=== PATIENT | male | born 1955 | race Caucasian/White ===

== ENCOUNTER 2018-01-18 14:34 | Emergency (ER) | payer OTHER ==
[~2018-01-18] VITALS: Ht 172.7 cm; Wt 73.3 kg
[~2018-01-18 14:34] MED LIST: DICL100T PO; HYDR1TAB14 PO; LORA0.5T PO
[2018-01-18 14:42] VITALS: BP 155/92
[2018-01-18] MEDS ORDERED: CLINDAMYCIN PMX 600MG/50ML 50 ML IV ONE (15:30)
[2018-01-18] MEDS ORDERED: CLINDAMYCIN PMX 600MG/50ML 50 ML ONE (15:47)
[2018-01-18 16:15] LABS: ALANINE AMINOTRANSFERASE 27 U/L (12-78); ALBUMIN 3.4 g/dL (3.4-5.0); ANION GAP 10 mmol/L (5-15); CALCIUM 8.8 mg/dL (8.5-10.1); CHLORIDE 104 mmol/L (98-107)
[2018-01-18 16:18] LABS: ALKALINE PHOSPHATASE 111 U/L (45-117); BILIRUBIN,TOTAL 0.6 mg/dL (0.2-1.0); CREATININE 0.77 mg/dL (0.7-1.3); TOTAL PROTEIN 6.7 g/dL (6.4-8.2)
[2018-01-18 16:53] LABS: BASOPHILS # (AUTO) 0.01 x10^3/uL (0-0.1); BASOPHILS % (AUTO) 0 % (0-1); EOSINOPHILS # (AUTO) 0.15 x10^3/uL (0-0.4); EOSINOPHILS % (AUTO) 1 % (1-7); LYMPHOCYTES # (AUTO) 1.11 x10^3/uL (1-3.4); LYMPHOCYTES % (AUTO) 9 % (22-44); MD NO; MEAN CORPUSCULAR HEMOGLOBIN 31.8 pg (27.5-34.5); MEAN CORPUSCULAR HGB CONC 33.5 g/dL (33.2-36.2); MEAN CORPUSCULAR VOLUME 94.9 fL (81-97); MEAN PLATELET VOLUME 7.3 fL (7.4-10.4); MONOCYTES # (AUTO) 0.98 x10^3/uL (0.2-0.8); MONOCYTES % (AUTO) 8 % (2-9); NEUTROPHILS # (AUTO) 10.58 x10^3/uL (1.8-6.8); NEUTROPHILS % (AUTO) 83 % (42-75); PLATELET COUNT 276 x10^3/uL (130-400); RED BLOOD COUNT 4.78 x10^6/uL (4.38-5.82); RED CELL DISTRIBUTION WIDTH 14.5 % (9.4-14.8)
== END 2018-01-18 17:03 | disposition home or self-care (01) ==
LOC: ED 16:24
DX: L03.114 Cellulitis of left upper limb (principal)
CPT/HCPCS: 36415; 80053; 84550; 85025; 96365; 99285

== ENCOUNTER 2018-07-14 18:46 | Emergency (ER) | payer OTHER ==
[~2018-07-14] VITALS: Ht 172.7 cm; Wt 76.9 kg
[2018-07-14 18:54] VITALS: BP 153/91
[2018-07-14] MEDS ORDERED: OXYMETAZOLINE NASAL SPRAY 0.05%, 15ML NAS ONE (20:00)
[2018-07-14] MEDS ORDERED: OXYMETAZOLINE NASAL SPRAY 0.05%,30ML ONE (20:15)
--- NOTE | 2018-07-14 20:55 | NUR ---
PACKING IN RIGHT NARE WITH NO BLEEDING NOTED. PT GIVEN DISCHARGE INSTRUCTIONS WITH QUESTIONS ANSWERED ABOUT FOLLOWUP. AMBULATED TO DISCHARGE WINDOW, STEADY GAIT
== END 2018-07-14 20:58 | disposition home or self-care (01) ==
LOC: ED 20:57
DX: R04.0 Epistaxis (principal); F41.1 Generalized anxiety disorder; Z87.891 Personal history of nicotine dependence; N40.0 Benign prostatic hyperplasia without lower urinary tract symptoms
CPT/HCPCS: 99282

== ENCOUNTER 2018-07-16 20:02 | Emergency (ER) | payer OTHER ==
[~2018-07-16] VITALS: Ht 172.7 cm; Wt 76.8 kg
[2018-07-16 20:08] VITALS: BP 163/95
== END 2018-07-16 21:35 | disposition home or self-care (01) ==
LOC: ED 21:05
DX: Z48.00 Encounter for change or removal of nonsurgical wound dressing (principal); F41.1 Generalized anxiety disorder
CPT/HCPCS: 99281

== ENCOUNTER → 2019-12-22 | Outpatient (CLI) | payer MEDICARE ==
[~2019-12-22] MED LIST changes: +ALLO100T30 PO; +DICL75TA3 PO; +HYDR-3246 PO; -HYDR1TAB14 PO; +HYDR1TAB15 PO; +LORA-446 PO; +OMEP40CA42 PO; +TAMS-11 PO
== END | disposition home or self-care (01) ==
LOC: STAR 14:12
PROVIDERS: ATTEND Orthopaedic Surgery
DX: Z01.818 Encounter for other preprocedural examination (principal); M25.511 Pain in right shoulder; M19.011 Primary osteoarthritis, right shoulder
CPT/HCPCS: 87081; 93005

== ENCOUNTER → 2019-12-27 | Outpatient (CLI) | payer MEDICARE | END | disposition home or self-care (01) | LOC: STAR 15:35 | PROVIDERS: ATTEND Anesthesiology | DX: Z01.812 Encounter for preprocedural laboratory examination (principal); Z20.828 Contact with and (suspected) exposure to other viral communicable diseases | CPT/HCPCS: 36415; 87635 ==

== ENCOUNTER 2020-05-12 13:20 | Outpatient (CLI) | payer MEDICARE ==
[~2020-05-12] VITALS: Ht 172.7 cm; Wt 75.0 kg
[~2020-05-12 13:20] MED LIST changes: -FURO-93 PO; -HYDR-3246 PO; +HYDR-3248 PO
[2020-05-12] MEDS ORDERED: FURO-93 PO (13:51)
[2020-05-18] MEDS ORDERED: BUPIVACAINE/PF 0.5% ONE (05:59)
[2020-05-18] MEDS ORDERED: CLINDAMYCIN 150 MG/ML, 6ML ONE (05:59)
[2020-05-18] MEDS ORDERED: BUPIVACAINE LIPOSOME/PF 10ML INFIL ONE (06:39)
== END 2020-05-12 23:59 | disposition home or self-care (01) ==
LOC: OUT 13:20 → EDSTATUS 05-18 15:30
PROVIDERS: ATTEND Orthopaedic Surgery
DX: Z02.9 Encounter for administrative examinations, unspecified (principal)

== ENCOUNTER → 2020-05-12 | Outpatient (CLI) | payer MEDICARE ==
[~2020-05-12] MED LIST changes: +FURO-93 PO
[2020-05-12 15:09] LABS: ALANINE AMINOTRANSFERASE 18 U/L (12-78); ALBUMIN 3.3 g/dL (3.4-5.0); ANION GAP 5 mmol/L (5-15); CHLORIDE 108 mmol/L (98-107)
[2020-05-12 15:12] LABS: ALKALINE PHOSPHATASE 146 U/L (45-117); BILIRUBIN,TOTAL 0.3 mg/dL (0.2-1.0); CREATININE 0.74 mg/dL (0.7-1.3); TOTAL PROTEIN 6.9 g/dL (6.4-8.2)
== END | disposition home or self-care (01) ==
LOC: STAR 13:18
PROVIDERS: ATTEND Orthopaedic Surgery
DX: Z01.812 Encounter for preprocedural laboratory examination (principal); Z20.828 Contact with and (suspected) exposure to other viral communicable diseases; M25.511 Pain in right shoulder; Z96.611 Presence of right artificial shoulder joint
CPT/HCPCS: 80053; 87081; 87635; 93005

== ENCOUNTER → 2020-08-16 | Outpatient (CLI) | payer MEDICARE ==
[~2020-08-16] MED LIST changes: +CLOT15CR26 TP; +FURO-93 PO; +LUBI24CA7 PO; +SILD100T PO; +TADA20TA PO
[2020-08-16 16:18] LABS: ALANINE AMINOTRANSFERASE 20 U/L (12-78); ALBUMIN 3.7 g/dL (3.4-5.0); ANION GAP 4 mmol/L (5-15); CALCIUM 9.1 mg/dL (8.5-10.1); CHLORIDE 106 mmol/L (98-107); CREATININE 0.79 mg/dL (0.7-1.3)
[2020-08-16 16:20] LABS: ALKALINE PHOSPHATASE 118 U/L (45-117); BILIRUBIN,TOTAL 0.3 mg/dL (0.2-1.0); TOTAL PROTEIN 6.7 g/dL (6.4-8.2)
== END | disposition home or self-care (01) ==
LOC: STAR 14:42
PROVIDERS: ATTEND Orthopaedic Surgery
DX: Z01.812 Encounter for preprocedural laboratory examination (principal); Z20.822 Contact with and (suspected) exposure to COVID-19; M25.511 Pain in right shoulder; Z96.611 Presence of right artificial shoulder joint
CPT/HCPCS: 36415; 80053; 87081; 93005; U0003

== ENCOUNTER 2020-08-22 07:17 | Day surgery (SDC) | payer MEDICARE ==
[~2020-08-22] VITALS: Ht 172.7 cm; Wt 73.0 kg
[~2020-08-22 07:17] MED LIST changes: +BUPIVACAINE LIPOSOME/PF 10ML INFIL ONE
[2020-08-22] MEDS ORDERED: ONDANSETRON 2MG/ML, 2ML IVPush PRN (08:00)
[2020-08-22] MEDS ORDERED: KETOROLAC 30 MG/1 ML IVPush PRN ×2 (08:00→08:30)
[2020-08-22] MEDS ORDERED: CHLORHEXIDINE 15 ML UDC PO ONE (08:00)
[2020-08-22] MEDS ORDERED: MIDAZOLAM 1 MG/ML, 2ML ONE (08:00)
[2020-08-22] MEDS ORDERED: HYDROcodone/APAP 7.5-325MG/15ML UDC PO PRN (08:00)
[2020-08-22] MEDS ORDERED: OXYcodone 5 MG/5 ML ORAL.SOL UDC PO PRN (08:00)
[2020-08-22] MEDS ORDERED: HYDROmorphone 1 MG/ML, 1ML INJ IVPush PRN (08:00)
[2020-08-22] MEDS ORDERED: FENTANYL PF 100 MCG/2ML IV PRN (08:00)
[2020-08-22] MEDS ORDERED: VANCOMYCIN PER PHARMACY MC PRN (08:00)
[2020-08-22] MEDS ORDERED: PROMETHAZINE 25 MG/ML, 1ML IVPush PRN (08:00)
[2020-08-22] MEDS ORDERED: ONDANSETRON 2MG/ML, 2ML ONE (08:01)
[2020-08-22] MEDS ORDERED: NEOSTIGMINE 1 MG/ML, 10ML ONE (08:01)
[2020-08-22] MEDS ORDERED: SUCCINYLCHOLINE 20 MG/ML, 10ML ONE (08:01)
[2020-08-22] MEDS ORDERED: DEXAMETHASONE 4 MG/ML, 1ML ONE (08:01)
[2020-08-22] MEDS ORDERED: FENTANYL PF 100 MCG/2ML ONE (08:01)
[2020-08-22] MEDS ORDERED: ROCURONIUM 10MG/ML,5ML ONE (08:01)
[2020-08-22] MEDS ORDERED: PROPOFOL 10 MG/ML, 20ML ONE (08:01)
[2020-08-22] MEDS ORDERED: CEFAZOLIN 1,000 MG ONE (08:01)
[2020-08-22] MEDS ORDERED: GLYCOPYRROLATE 0.2MG/1ML, 5ML ONE (08:01)
[2020-08-22] MEDS ORDERED: OXYC10TA47 PO (08:15)
[2020-08-22] MEDS ORDERED: LACTATED RINGERS 1,000 ML IV SCH (08:30)
[2020-08-22] MEDS ORDERED: VANCOMYCIN 1,800 MG in SODIUM CHLORIDE 0.9% 250 ML IV ONE (08:30)
[2020-08-22 08:43] VITALS: BP 143/81
[2020-08-22] MEDS ORDERED: OxyconTIN ER 10 MG TAB.ER PO SCH (09:00)
[2020-08-22] MEDS ORDERED: HYDROcodone/APAP 10/325 MG TABLET PO SCH (09:00)
[2020-08-22] MEDS ORDERED: TEMPLATE NON-FORMULARY MED. (Omeprazole** 40 MG) PO SCH (09:00)
[2020-08-22] MEDS ORDERED: TAMSULOSIN 0.4 MG CAP.ER.24H PO SCH (09:00)
[2020-08-22] MEDS ORDERED: LORazepam 1MG TABLET PO SCH (09:00)
[2020-08-22] MEDS ORDERED: ALLOPURINOL 100 MG TABLET PO SCH (09:00)
[2020-08-22] MEDS ORDERED: FUROSEMIDE 20 MG TABLET PO SCH (09:00)
[2020-08-22] MEDS ORDERED: EPHEDRINE 50 MG/ML, 1ML ONE (09:10)
[2020-08-22] MEDS ORDERED: PHENYLEPHRINE 10 MG/ML ONE (09:10)
[2020-08-22] MEDS ORDERED: VASOPRESSIN 20 UNIT/ML, 1ML ONE (09:10)
[2020-08-22] MEDS ORDERED: ALBUTEROL HFA 90 MCG/SPRAY ONE (16:54)
[2020-08-22] MEDS ORDERED: ALBUTEROL HFA 90 MCG/SPRAY INH PRN (17:00)
== END 2020-08-22 17:26 | disposition home or self-care (01) ==
LOC: OUT 07:17
PROVIDERS: ATTEND Orthopaedic Surgery
DX: T84.89XA Other specified complication of internal orthopedic prosthetic devices, implants and grafts, initial encounter (principal); M25.511 Pain in right shoulder; F41.9 Anxiety disorder, unspecified; M10.9 Gout, unspecified; M19.90 Unspecified osteoarthritis, unspecified site; Y83.8 Other surgical procedures as the cause of abnormal reaction of the patient, or of later complication, without mention of misadventure at the time of the procedure; Z79.899 Other long term (current) drug therapy; Z72.89 Other problems related to lifestyle; Z87.891 Personal history of nicotine dependence; Z98.890 Other specified postprocedural states; Z79.1 Long term (current) use of non-steroidal anti-inflammatories (NSAID)
CPT/HCPCS: 23474; 64415; 71045; 87070; 87075; 87205; C1776; J0330; J0690; J1100; J2250; J2370; J2405; J2704; J2710; J3010; J3370; J7050; J7120